=== PATIENT | male | born 1960 | race Caucasian/White ===

== ENCOUNTER 2017-07-14 18:33 | Emergency (ER) | payer OTHER ==
[~2017-07-14] VITALS: Ht 180.3 cm; Wt 110.6 kg
[~2017-07-14 18:33] MED LIST: ACETAMINOPHN-T1 EACH PO; ADVIL200 MG PO; ALPRAZOLAM2 MG PO; AMBIEN10 MG PO; CITALOPRAM HBR40 MG PO; COUMADIN1 MG PO; COUMADIN3 MG PO; COUMADIN5 MG PO; DAILY VALUE1 EACH PO; DOCUSATE SODIU100 MG PO; ERGOCALCIF50000 UNIT PO; FIORICET,ESG1 TABLET PO; GLUCOSAMINE &1 EAC1 PO; INDOCIN SR75 MG PO; LOPRESSOR25 MG PO; METOPROLOL TART25 MG PO; MULTIVITAMIN1 EAC2 PO; NAPROSYN250 MG PO; OMEPRAZOLE40 M1 PO; OXYCODONE HCL5 MG PO; PERCOCET 10/1 TABLET PO; PERCOCET 5/31 TABLET PO; PERCOCET 7.51 TABLET PO; PRAVASTATIN SOD40 MG PO; SENNA8.6 MG PO; WARFARIN SODIUM1 MG PO; WARFARIN SODIUM5 MG PO; XANAX1 MG PO; XANAX2 MG PO; ZOLPIDEM TARTRA10 MG PO
[2017-07-14 20:51] VITALS: BP 132/84
== END 2017-07-14 20:51 | disposition home or self-care (01) ==
LOC: EME 18:33
DX: M51.36 Other intervertebral disc degeneration, lumbar region (principal); G89.29 Other chronic pain
CPT/HCPCS: 72100; 99281; 99284